=== PATIENT | female | born 1995 | race Two or more races ===

== ENCOUNTER 2019-06-16 00:25 | Inpatient (IN) | payer MEDICAID ==
[~2019-06-16] VITALS: Ht 170.2 cm; Wt 88.5 kg
[2019-06-16 01:36] LABS: Basophils # (auto) 0 uL; Basophils % (auto) 0.3 % (0.0-2.0); Eosinophils # (auto) 0.1 uL; Eosinophils % (auto) 1.2 % (0.0-7.0); Hematocrit 47.5 % (36.0-46.0); Lymphocytes # (auto) 0.8 uL; Lymphocytes % (auto) 18.4 % (10.0-50.0); Mean Corpuscular Hemoglobin 29.8 pg (28.0-32.0); Mean Corpuscular Hgb Conc. 33.7 g/dL (32.0-36.0); Mean Corpuscular Volume 88.5 fL (80.0-100.0); Monocytes # (auto) 0.6 uL; Neutrophils # (auto) 2.8 uL; Neutrophils % (auto) 66.1 % (37.0-80.0); Nucleated Red Blood Cells % 0.1 %; Platelet Count (auto) 157 10^3/uL (140-450); Red Blood Cells 5.37 10^6/uL (4.0-5.20); Red Cell Distribution Width 13.5 % (11.8-14.3); White Blood Cell 4.2 10^3/uL (4.4-10.8)
[2019-06-16 01:44] LABS: Alanine Aminotransferase 42 U/L (13-56); Albumin 3.4 g/dL (3.4-5.0); Anion Gap 10 (5-15); Aspartate Aminotransferase 33 U/L (15-37); Blood Urea Nitrogen 12 mg/dL (7-18); Calcium 8.4 mg/dL (8.5-10.1); Carbon Dioxide 20 mmol/L (21-32); Chloride 103 mmol/L (98-107); GFR African American 158 mL/min; GFR Non-African American 131 mL/min; Glucose 325 mg/dL (74-106); Potassium 3.5 mmol/L (3.5-5.1); Sodium 133 mmol/L (136-145)
[2019-06-16 01:49] LABS: Urine Bacteria FEW /hpf (None Seen); Urine Blood TRACE /uL (Negative); Urine Budding Yeast OCCASIONAL /hpf (None Seen); Urine WBC 2 /hpf (0 - 5)
[2019-06-16 01:52] LABS: Alkaline Phosphatase 82 U/L (45-117); Bilirubin, Total 0.3 mg/dL (0.2-1.0); Total Protein 7.8 g/dL (6.4-8.2)
[2019-06-16 01:58] LABS: Alcohol, Urine < 3.0 mg/dL (0-5); Amphetamine Screen, Urine NEGATIVE (NEGATIVE); Barbiturate Scree,Urine NEGATIVE (NEGATIVE); Benzodiazephine Screen, Urine NEGATIVE (NEGATIVE); Cannabinoid Screen, Urine POSITIVE (NEGATIVE); Cocaine Screen, Urine NEGATIVE (NEGATIVE); Opiate Scree,Urine NEGATIVE (NEGATIVE); Phencyclidine Screen, Urine NEGATIVE (NEGATIVE)
[2019-06-16] MEDS ORDERED: SODIUM CHLORIDE 0.9% 250 ML IV ONE (02:00)
[2019-06-16] MEDS ORDERED: methylPREDNISolone SOD SUCC 125 MG/2 ML VL IV ONE (02:00)
[2019-06-16] MEDS ORDERED: ALBUTEROL SULF 2.5 MG/0.5ML(0.5%) NEB SOLN NEB ONE (02:00)
[2019-06-16] MEDS ORDERED: IPRATROPIUM BROM 0.5 MG/2.5ML INH SOL NEB ONE (02:00)
[2019-06-16] MEDS ORDERED: LORazepam 2MG/ML-1ML VIAL IV ONE (05:30)
[2019-06-16] MEDS ORDERED: IOHEXOL 350 MG/ML 100ML IJ ONE (06:22)
[2019-06-16] MEDS ORDERED: ONDANSETRON HCL 4 MG/2 ML VIAL IV PRN (07:00)
[2019-06-16] MEDS ORDERED: NITROGLYCERIN 0.4 MG SL TAB SL PRN (07:00)
[2019-06-16] MEDS ORDERED: TEMAZEPAM 15 MG CAP PO PRN (07:00)
[2019-06-16] MEDS ORDERED: DEXTROSE (50%) 50ML SYRG IV PRN (07:00)
[2019-06-16] MEDS ORDERED: ACETAMINOPHEN 325 MG TAB PO PRN (07:00)
[2019-06-16] MEDS ORDERED: MORPHINE SULF INJ 2 MG/ML SYRINGE 1ML IV PRN (07:00)
[2019-06-16] MEDS ORDERED: SODIUM CHLORIDE 0.9% 500 ML IV ONE ×2 (07:00→14:30)
[2019-06-16] MEDS: ALBUTEROL SULF 2.5 MG/0.5ML(0.5%) NEB SOLN NEB PRN ×2 (07:46→19:18)
[2019-06-16] MEDS: SODIUM CHLORIDE 0.9% 1,000 ML IV SCH (09:07)
[2019-06-16] MEDS: cefTRIAXone 1GM/50ML D5W 50 ML IV SCH (09:16)
[2019-06-16] MEDS: methylPREDNISolone SOD SUCC 125 MG/2 ML VL IV SCH ×2 (09:28→22:41)
[2019-06-16] MEDS: FAMOTIDINE 20 MG TAB PO SCH ×2 (09:30→22:40)
[2019-06-16 09:43] VITALS: BP 132/77
[2019-06-16] MEDS ORDERED: METF-370 PO (09:45)
[2019-06-16] MEDS ORDERED: ASPirin 81 mg TAB PO SCH (10:00)
[2019-06-16] MEDS: ACCU-CHEK COMFORT CURVE STRIP VI SCH ×2 (12:14→17:19)
[2019-06-16] MEDS: InsuLIN REG 1unit/0.01ml Soln (100units/ml) SC SCH ×2 (12:25→17:19)
--- NOTE | 2019-06-16 14:55 | NUR ---
Telemetry admit from ER KUMAR OLIVIER admitted to Telemetry unit after SBAR received. Patient oriented to Анна Munson RN, unit, room, bed, and unit policies regarding patient care and visiting hours. Patient now on continuous telemetry monitoring, tele box #56 and telemetry reading on arrival to unit is 107 ST. Patient placed on bedside oxygen at 3 LPM via lung tube nasal cannula, weighed by bed scale and encouraged to call if she needs something. All questions and concerns addressed, patient verbalized understanding. Note: Patient awake, oriented x4, no acute distress noted. Ambulatory to the bathroom. Family at bedside.
--- NOTE | 2019-06-16 15:10 | NUR ---
Accu check = 337 mg/dl.
--- NOTE | 2019-06-16 15:10 | NUR ---
Accu check = 377 mg/dl. Patient stated she had Insulin at the ER. Family at bedside. Addendum: 06/16/19 at 1536 by Анна Fernandes RN ACCU CHECK = 337 MG/DL.
--- NOTE | 2019-06-16 17:19 | NUR ---
Accu check = 284 mg/dl.
--- NOTE | 2019-06-16 19:00 | NUR ---
Patient stated she's having difficulty breathing pradeep with oxygen via nasal cannula. Will call RT. Addendum: 06/16/19 at 1906 by Анна Fernandes RN even with O2
--- NOTE | 2019-06-16 19:02 | NUR ---
Tylenol PO given for pain. Family member at bedside.
--- NOTE | 2019-06-16 19:04 | NUR ---
Spoke with the Respiratory Therapist for patient's breathing treatment PRN.
[2019-06-16] MEDS ORDERED: AZITHROMYCIN 250 MG TAB PO ONE (19:45)
[2019-06-16] MEDS ORDERED: LOSARTAN POTASSIUM 50 MG TAB PO ONE (19:45)
--- NOTE | 2019-06-16 20:04 | NUR ---
received report from day rn poc reviewed
[2019-06-16] MEDS: ENOXAPARIN SOD 100 MG/1 ML SYRINGE SC SCH (22:41)
--- NOTE | 2019-06-16 23:25 | NUR ---
AWOKE C/O SWEATING TEMP WNL,
[2019-06-17] VITALS (7 sets, daily range): BP systolic 117–134; BP diastolic 70–81
[2019-06-17] MEDS: SODIUM CHLORIDE 0.9% 1,000 ML IV SCH ×3 (01:02→19:15)
[2019-06-17] MEDS: INSULIN LANTUS (GLARGINE) 1 /0.01ml (100units/ml) SC SCH ×2 (01:03→23:59)
[2019-06-17] MEDS: InsuLIN REG 1unit/0.01ml Soln (100units/ml) SC SCH ×5 (01:04→23:58)
[2019-06-17] MEDS: ACCU-CHEK COMFORT CURVE STRIP VI SCH ×5 (01:04→23:57)
--- NOTE | 2019-06-17 01:15 | NUR ---
RESTING WITH EYES CLOSED CALL LIGHT WITHIN REACH
--- NOTE | 2019-06-17 04:11 | NUR ---
AWOKE C/O SWEATING BS 259
[2019-06-17 05:48] LABS: Basophils # (auto) 0 uL; Basophils % (auto) 0.1 % (0.0-2.0); Eosinophils # (auto) 0 uL; Hematocrit 46.3 % (36.0-46.0); Hemoglobin 15.4 g/dL (12.2-16.2); Lymphocytes # (auto) 0.6 uL; Lymphocytes % (auto) 12.7 % (10.0-50.0); Mean Corpuscular Hemoglobin 29.9 pg (28.0-32.0); Mean Corpuscular Hgb Conc. 33.4 g/dL (32.0-36.0); Mean Corpuscular Volume 89.6 fL (80.0-100.0); Monocytes # (auto) 0.2 uL; Neutrophils # (auto) 4.1 uL; Neutrophils % (auto) 83.2 % (37.0-80.0); Platelet Count (auto) 171 10^3/uL (140-450); Red Blood Cells 5.17 10^6/uL (4.0-5.20); Red Cell Distribution Width 13.8 % (11.8-14.3)
[2019-06-17 06:00] LABS: Calcium 7.9 mg/dL (8.5-10.1); Potassium 4.5 mmol/L (3.5-5.1)
[2019-06-17 06:02] LABS: BUN/Creatinine Ratio 42.9
--- NOTE | 2019-06-17 06:33 | NUR ---
PT WENT TO CT
--- NOTE | 2019-06-17 07:00 | NUR ---
REPORT GIVEN TO AM NURSE POC REVIEWED
--- NOTE | 2019-06-17 07:30 | NUR ---
Opening Shift Note Received report on the patient. Awake lying in bed. Patient shows no signs of distress at this time. Discussed the plan of care with the patient. Bed in lowest position, side rails up x2, and the call light is within reach. Will continue to monitor.
[2019-06-17] MEDS: ENOXAPARIN SOD 100 MG/1 ML SYRINGE SC SCH (07:45)
--- NOTE | 2019-06-17 08:44 | NUR ---
Respiratory note: ASSESSED PT FOR PRN TX. NOT INDICATED AT THIS TIME. HR 104, SPO2 98% 2LNC BS DIMINISHED T/O, RR 18. NO RESPIRATORY DISTRESS NOTED AT THIS TIME. PT KNOWS TO HAVE RT PAGED IF TX NEEDED.
[2019-06-17] MEDS: methylPREDNISolone SOD SUCC 125 MG/2 ML VL IV SCH (09:58)
[2019-06-17] MEDS: cefTRIAXone 1GM/50ML D5W 50 ML IV SCH (09:58)
[2019-06-17] MEDS: LOSARTAN POTASSIUM 50 MG TAB PO SCH (09:59)
[2019-06-17] MEDS: FAMOTIDINE 20 MG TAB PO SCH ×2 (09:59→23:57)
[2019-06-17] MEDS ORDERED: AZITHROMYCIN 250 MG TAB PO SCH (10:00)
--- NOTE | 2019-06-17 13:12 | NUR ---
V/Q scan Called Nuc Med for status on the VQ Scan. Left a message.
[2019-06-17] MEDS ORDERED: LORATADINE 10 MG TAB PO ONE (16:45)
[2019-06-17] MEDS: ALBUTEROL SULF 2.5 MG/0.5ML(0.5%) NEB SOLN NEB PRN (18:39)
--- NOTE | 2019-06-17 19:25 | NUR ---
Opening Shift Note Received report from shasha Titus RN. Awake lying in bed. Patient shows no signs of distress at this time. Discussed the plan of care with the patient. Bed in lowest position, side rails up x2, and the call light is within reach. Will continue to monitor.
[2019-06-17] MEDS: ENOXAPARIN SOD 40 MG/0.4 ML SYRINGE SC SCH (23:57)
[2019-06-18 04:41] VITALS: BP 108/57
[2019-06-18] MEDS: ACCU-CHEK COMFORT CURVE STRIP VI SCH ×2 (06:00→12:00)
[2019-06-18 06:10] LABS: Basophils # (auto) 0 uL; Basophils % (auto) 0.1 % (0.0-2.0); Eosinophils # (auto) 0 uL; Eosinophils % (auto) 0.1 % (0.0-7.0); Hematocrit 43.4 % (36.0-46.0); Lymphocytes # (auto) 1.3 uL; Lymphocytes % (auto) 26.2 % (10.0-50.0); Mean Corpuscular Hemoglobin 30.4 pg (28.0-32.0); Mean Corpuscular Hgb Conc. 34.5 g/dL (32.0-36.0); Mean Corpuscular Volume 88.4 fL (80.0-100.0); Monocytes # (auto) 0.6 uL; Monocytes % (auto) 11.7 % (0.0-12.0); Neutrophils % (auto) 61.9 % (37.0-80.0); Nucleated Red Blood Cells % 0.2 %; Platelet Count (auto) 164 10^3/uL (140-450); Red Blood Cells 4.91 10^6/uL (4.0-5.20); Red Cell Distribution Width 13.6 % (11.8-14.3); White Blood Cell 4.8 10^3/uL (4.4-10.8)
[2019-06-18] MEDS: SODIUM CHLORIDE 0.9% 1,000 ML IV SCH ×3 (06:11→09:54)
[2019-06-18 06:14] LABS: Albumin 2.9 g/dL (3.4-5.0); Potassium 3.2 mmol/L (3.5-5.1)
[2019-06-18 06:21] LABS: BUN/Creatinine Ratio 38.6; Bilirubin, Total 0.4 mg/dL (0.2-1.0); Calcium 7.9 mg/dL (8.5-10.1); Phosphorus 2.1 mg/dL (2.5-4.90); Total Protein 6.9 g/dL (6.4-8.2)
--- NOTE | 2019-06-18 06:30 | NUR ---
Patient is alert and awake, no distress noted and patient denies pain.
[2019-06-18] MEDS: InsuLIN REG 1unit/0.01ml Soln (100units/ml) SC SCH ×2 (06:32→12:00)
--- NOTE | 2019-06-18 07:30 | NUR ---
Opening Shift Note Received report on the patient. Awake lying in bed. Patient shows no signs of distress at this time. Discussed plan of care with the patient. Bed in lowest position, side rails up x2, and the call light is within reach. Will continue to monitor.
--- NOTE | 2019-06-18 07:40 | NUR ---
Respiratory note: PRN MED NEB TX NOT INDICATED AT THIS TIME. HR 90, RR 16, SPO2 97% ON RA, BS CLEAR. NO SIGNS OR SYMPTOMS OF RESPIRATORY DISTRESS NOTED. PT INFORMED TO HIT CALL BUTTON IF FEELING SOB OR WHEEZING.
[2019-06-18] MEDS ORDERED: metFORMIN HYDROCHLORIDE 500 MG TAB PO SCH (08:00)
[2019-06-18 08:15] VITALS: BP 122/70
[2019-06-18 09:00] VITALS: BP 117/73
[2019-06-18] MEDS: cefTRIAXone 1GM/50ML D5W 50 ML IV SCH (09:10)
[2019-06-18] MEDS: ENOXAPARIN SOD 40 MG/0.4 ML SYRINGE SC SCH (09:51)
[2019-06-18] MEDS: FAMOTIDINE 20 MG TAB PO SCH (09:52)
[2019-06-18] MEDS ORDERED: LORATADINE 10 MG TAB PO SCH (10:00)
[2019-06-18] MEDS ORDERED: AZITHROMYCIN 250 MG TAB PO SCH (10:00)
[2019-06-18] MEDS ORDERED: LOSARTAN POTASSIUM 25 MG TAB PO SCH (10:00)
--- NOTE | 2019-06-18 11:44 | NUR ---
Discharge Dr at bedside. Will put orders in for discharge on 06/19 because the patient has no insurance and needs insulin. All prescriptions were called into [facility].
--- NOTE | 2019-06-18 11:53 | NUR ---
Insurance I called [facility] and left a message regarding the patient's lack of insurance and her discharge on 06/19.
[2019-06-18 12:27] VITALS: BP 126/76
[2019-06-18] MEDS: LOSARTAN POTASSIUM 50 MG TAB PO SCH (12:35)
--- NOTE | 2019-06-18 13:18 | NUR ---
AMA Patient left AMA because she was upset with Dr Mann for asking her about her marijuana consumption.
--- NOTE | 2019-06-18 13:21 | NUR ---
Tele Box Notified and returned to the tele monitors.
[2019-06-19] MEDS ORDERED: ENOXAPARIN SOD 40 MG/0.4 ML SYRINGE SC SCH (10:00)
== END 2019-06-18 13:16 | disposition left against medical advice (07) | DRG 420 ==
LOC: ER 00:29 → TELE 00:30 → TELE-WESTW 14:30
PROVIDERS: ADMIT Nurse Practitioner; ATTEND Internal Medicine Nephrology
DX: E11.10 Type 2 diabetes mellitus with ketoacidosis without coma (principal); J96.01 Acute respiratory failure with hypoxia; D70.9 Neutropenia, unspecified; E87.4 Mixed disorder of acid-base balance; E86.0 Dehydration; E11.65 Type 2 diabetes mellitus with hyperglycemia; E66.9 Obesity, unspecified; R00.0 Tachycardia, unspecified; I10 Essential (primary) hypertension; F12.10 Cannabis abuse, uncomplicated; I11.9 Hypertensive heart disease without heart failure; Z79.84 Long term (current) use of oral hypoglycemic drugs; Z82.49 Family history of ischemic heart disease and other diseases of the circulatory system; Z68.30 Body mass index [BMI] 30.0-30.9, adult; Z82.5 Family history of asthma and other chronic lower respiratory diseases; Z83.3 Family history of diabetes mellitus; F41.9 Anxiety disorder, unspecified; Y92.89 Other specified places as the place of occurrence of the external cause; T39.015A Adverse effect of aspirin, initial encounter; Z53.29 Procedure and treatment not carried out because of patient's decision for other reasons; Z71.51 Drug abuse counseling and surveillance of drug abuser
CPT/HCPCS: 36415; 36600; 71045; 71250; 80048; 80053; 80061; 80307; 81001; 81025; 82805; 82962; 83036; 83605; 83735; 83835; 83880; 84100; 84443; 84484; 85025; 85379; 87040; 87086; 87804; 93005; 93306; 94640; G0378; J0696; J1815

== ENCOUNTER 2022-05-21 14:49 | Emergency (ER) | payer SELFPAY ==
[~2022-05-21] VITALS: Ht 170.2 cm; Wt 84.5 kg
[~2022-05-21 14:49] MED LIST: METF-370 PO
[2022-05-21 15:18] LABS: Basophils # (auto) 0.1 10 ^3/uL (0-0.2); Basophils % (auto) 0.7 % (0.0-2.0); Eosinophils # (auto) 0.2 10 ^3/uL (0-0.8); Eosinophils % (auto) 3.6 % (0.0-7.0); Hematocrit 48.1 % (36.0-46.0); Hemoglobin 15.8 g/dL (12.2-16.2); Lymphocytes # (auto) 2.1 10 ^3/uL (0.4-5.4); Lymphocytes % (auto) 30.8 % (10.0-50.0); Mean Corpuscular Hemoglobin 29.6 pg (28.0-32.0); Mean Corpuscular Hgb Conc. 32.9 g/dL (32.0-36.0); Monocytes # (auto) 0.4 10 ^3/uL (0-1.3); Monocytes % (auto) 6.2 % (0.0-12.0); Neutrophils % (auto) 58.7 % (37.0-80.0); Nucleated Red Blood Cells % 0.1 %; Red Blood Cells 5.34 10^6/uL (4.0-5.20); Red Cell Distribution Width 13.8 % (11.8-14.3); White Blood Cell 6.9 10^3/uL (4.4-10.8)
[2022-05-21 15:35] LABS: BUN/Creatinine Ratio 27.1; Calcium 9.2 mg/dL (8.5-10.1); Potassium 4.4 mmol/L (3.5-5.1)
[2022-05-21 15:38] LABS: Bilirubin, Total 0.2 mg/dL (0.2-1.0)
[2022-05-21 15:40] LABS: Urine Bacteria FEW /hpf (None Seen); Urine Blood 1+ /uL (Negative); Urine Specific Gravity 1.039 (1.001-1.035); Urine WBC 2 /hpf (0 - 5)
[2022-05-21] MEDS: LABETALOL HCL 5 MG/ML 4ML SYRINGE IV ONE ×2 (16:27→21:05)
[2022-05-21] MEDS: cefTRIAXone 1GM/50ML D5W 50 ML IV ONE (17:34)
[2022-05-21] MEDS ORDERED: NITR-87 PO (18:52)
[2022-05-21] MEDS ORDERED: AML5T PO (21:04)
[2022-05-21 21:51] VITALS: BP 129/83
== END 2022-05-21 22:00 | disposition home or self-care (01) ==
LOC: EDUNIT# 14:49 → ER 14:49 → EDBD 14:49 → ER 22:00
DX: I16.9 Hypertensive crisis, unspecified (principal); N39.0 Urinary tract infection, site not specified; R10.2 Pelvic and perineal pain; R07.89 Other chest pain; E11.9 Type 2 diabetes mellitus without complications; I10 Essential (primary) hypertension; Z91.018 Allergy to other foods
CPT/HCPCS: 36415; 71045; 80053; 81001; 83880; 84484; 84702; 85025; 85379; 93005; 96365; 96375; 96376; 99285; J0696; J3490

== ENCOUNTER 2024-04-05 11:57 | Emergency (ER) | payer MEDICAID ==
[~2024-04-05] VITALS: Ht 170.2 cm; Wt 77.0 kg
[~2024-04-05 11:57] MED LIST changes: +AML5T PO; +NITR-87 PO
--- NOTE | 2024-04-05 14:05 | ED.PDOC ---
History of Present Illness HPI Comments 28 y/o F, with a Hx of CVA, DM, HTN, and EtOH and marijuana use, presents with c/o abnormal vaginal bleeding and lower abdominal and back pain for the past 3x days, today. Patient endorses on being 6-8x weeks and having unprovoked onset of intermittent spotting, with abdominal pain that, occasional ly, radiates towards her back. Patient states this being her third , with the first being a stillborn and the second being a miscarriage ([id number]). 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 Patient reports no additional relevant or pertinent Hx aside from FMHx of breast and lung CA, in addition to refuting any recent injuries, sick contact, travel, spoiled food intake, or recent substance use/exposure. Patient denies having any nausea, vomiting, diarrhea, dysuria, fever, chills, or other associated symptoms or modifiers at this time. Chief Complaint: Time Seen by MD: 13:10 Primary Care Provider: NONE Reviewed Notes: Nurses Notes, Medications, Allergies Allergies: Coded Allergies: Iodine (Verified Allergy, Unknown, 06/16/19) Uncoded Allergies: PENICILLIN (Allergy, Unknown, 04/05/24) Home Meds Active Scripts Nitrofurantoin Monohydrate Mac (Macrobid) 100 Mg Cap, 100 MG PO BID for 7 Days, #14 CAP Prov:MARIA C CAVAZOS MD 04/05/24 Amlodipine Besylate (NORVASC TABLET) 5 Mg Tb, 1 TAB PO DAILY PRN for 10 Days, #10 TAB 5 Refills Prov:CHERYL CUBA DO 05/21/22 Reported Medications Metformin Hydrochloride (Metformin Hcl) 500 Mg Tab, 500 MG PO IBID for 30 Days, MG 06/16/19 Information Source: Patient Mode of Arrival: Ambulatory Severity: Moderate Timing: Days Duration: Since onset Prehospital treatment: None Past Medical History PAST MEDICAL HISTORY: CVA, DM, HTN Surgical History: Denies all surgeries INFORMATION SYSTEMS SECURITY ANALYST History: Denies all INFORMATION SYSTEMS SECURITY ANALYST Hx Family History Family History: No family hx of DM, No family hx of Heart antwon, No family hx of HTN, No family hx ofKidney antwon, No family hx of Liver antwon, No family hx of Lung antwon, No family hx of Stroke, Family hx of Cancer (breast and lung CA ) Social History Smoker: Non-Smoker Alcohol: Occasionally Drugs: Marijuana Lives In: Home Constitutional: denies: chills, diaphoresis, fatigue, fever, malaise, sweats, weakness, others EENTM: denies: blurred vision, double vision, ear bleeding, ear discharge, ear drainage, ear pain, ear ringing, eye pain, eye redness, hearing loss, mouth pain, mouth swelling, nasal discharge, nose bleeding, nose congestion, nose pain, photophobia, tearing, throat pain, throat swelling, voice changes, others Respiratory: denies: cough, hemoptysis, orthopnea, SOB at rest, shortness of breath, SOB with excertion, stridor, wheezing, others Cardiovascular: denies: chest pain, dizzy spells, diaphoresis, Dyspnea on exertion, edema, irregular heart beat, left arm pain, lightheadedness, palpitations, PND, syncope, others Gastrointestinal: reports: abdominal pain; denies: abdomen distended, blood streaked bowels, constipated, diarrhea, dysphagia, difficulty swallowing, hemate mesis, melena, nausea, poor appetite, poor fluid intake, rectal bleeding, rectal pain, vomiting, others Genitourinary: reports: abnormal vagina bleeding; denies: burning, dyspareunia, dysuria, flank pain, frequency, hematuria, incontinence, pain, , vagina discharge, urgency, others Neurological: denies: dizziness, fainting, headache, left sided numbness, left sided weakness, numbness, paresthesia, pre-existing deficit, right sided numb ness, right sided weakness, seizure, speech problems, tingling, tremors, weakness, others Musculoskeletal: reports: back pain; denies: gout, joint pain, joint swelling, muscle pain, muscle stiffness, neck pain, others Integumetry: denies: bruises, change in color, change in hair/nails, dryness, laceration, lesions, lumps, rash, wounds, others Allergic/Immunocompromised: denies: Difficulty Healing, Frequent Infections, Hives, Itching, others Hematologic/Lymphatic: denies: anemia, blood clots, easy bleeding, easy bruising, swollen glands, others Endocrine: denies: excessive hunger, excessive sweating, excessive thirst, excessive urination, flushing, intolerance to cold, intolerance to heat, unexplained weight gain, unexplained weight loss, others Psychiatric: denies: anxiety, bipolar disorder, depression, hopeless, panic disorder, schizophrenia, sleepless, suicidal, others All Other Systems: Reviewed and Negative Physical Exam General Appearance: No Apparent Distress HEENT: Normal ENT Inspection, Pharynx Normal, TMs Normal Neck: Full Range of Motion, Non-Tender, Normal, Normal Inspection Respiratory: Chest Non-Tender, Lungs Clear, No Accessory Muscle Use, No Respiratory Distress, Normal Breath Sounds Cardiovascular: No Edema, No JVD, No Murmur, No Gallop, Normal Peripheral Pulses, Regular Rate/Rhythm Breast Exam: Deferred Gastrointestinal: No Organomegaly, Non Tender, No Pulsatile Mass, Normal Bowel Sounds, Soft Genitalia: Deferred Pelvic: Deferred Rectal: Deferred Extremities: No calf tenderness, Normal capillary refill, Normal inspection, Normal range of motion, Non-tender, No pedal edema Musculoskeletal : Apperance: Normal Neurologic: Alert, bounty trapper II-XII nml as Tested, No Motor Deficits, Normal Affect, Normal Mood, No Sensory Deficits Cerebellar Function: Normal Reflexes: Normal Skin: Dry, Normal Color, Warm Lymphatic: No Adenopathy Was a procedure done? Was a procedure done?: No Differential Dx Considerations may include: at-risk , at-risk miscarriage, UTI, menorrhea, menorrhagia, dysmenorrhea X-Ray, Labs, Meds, VS Vital Signs Date Time Temp Pulse Resp B/P (MAP) Pulse Ox O2 Delivery O2 Flow Rate FiO2 04/05/24 12:45 98.0 100 18 150/94 (112) 97 Lab Test 04/05/24 13:43 04/05/24 12:16 Range/Units Beta HCG, Quantitative 14728.2 H 1.5-4.2 mIU/mL Urine Color Yellow Yellow Urine Clarity Clear Clear Urine pH 5.5 5.0-9.0 Urine Specific [place] 1.038 H 1.001-1.035 Urine Protein 3+ H Negative Urine Ketones Negative Negative Urine Blood 2+ H Negative /uL Urine Nitrite 1+ H Negative Urine Bilirubin Negative Negative Urine Urobilinogen Normal Negative mg/dL Urine Leukocyte Esterase Negative Negative /uL Urine RBC 2 0 - 4 /hpf Urine WBC 4 0 - 5 /hpf Urine Squamous Epithelial Cells Few <5 /hpf Urine Amorphous Crystals Few None Seen /hpf Urine Bacteria Few H None Seen /hpf Urine Mucus Few None Seen Urine Glucose 4+ H Normal mg/dL PROCEDURE(s): OB4US - OB ULTRASOUND COMP LESS 14WKS IMPRESSION: 1. Single living intrauterine with estimated gestational age of 8 weeks 0 days based on 1st trimester ultrasound crown-rump length. Large ovarian mass at the fundus, likely fibroid. 2. Unremarkable sonographic appearance of both ovaries. The urine test is positive for UTI The patient was being discharged on Macrobid The patient will follow up with the primary care doctor We did explain to the patient that she also has a fibroid The patient was being discharged Time of 1ST Reevaluation: 13:40 Reevaluation 1ST: Unchanged Patient Education/Counseling: Diagnosis, Treatment, Prognosis, Need For Follow Up Family Education/Counseling: No Family Present Departure 1 Departure Time of Disposition: 18:12 Impression: Primary Impression: Abdominal pain during Qualified Codes: O26.899 - Other specified related conditions, unspecified trimester; R10.9 - Unspecified abdominal pain Additional Impressions: UTI (urinary tract infection) Qualified Codes: N30.00 - Acute cystitis without hematuria Threatened Disposition: HOME / SELF CARE / HOMELESS Condition: Fair e-Prescriptions Nitrofurantoin Monohydrate Mac (Macrobid) 100 Mg Cap 100 MG PO BID for 7 Days, #14 CAP Prov: MARIA C CAVAZOS MD 04/05/24 Discharged With: Self Critical Care Note Critical Care Time?: No Stability Stability form required: No Heart Score Heart Score: Heart Score Response (Comments) Value History N/A 0 EKG N/A 0 Age N/A 0 Risk Factors N/A 0 Troponin N/A 0 Total 0 I personally scribed for MARIA C CAVAZOS MD ([email or web address]) on 04/05/24 at 14:05. Electronically submitted by Chato Persaud ([email or web address]). I personally scribed for MARIA C CAVAZOS MD ([email or web address]) on 04/05/24 at 16:11. Electronically submitted by Chato Persaud ([email or web address]). MARIA C CAVAZOS MD Apr 05, 2024 14:05
--- NOTE | 2024-04-05 15:21 | DVH ---
CLINICAL HISTORY: pain COMPARISON: None TECHNIQUE: Transabdominal grayscale sonographic imaging of the uterus and ovaries was performed, assi sted by color Doppler technique. Duplex Doppler ultrasound of both ovaries was also performed. Sonogr aphic evaluation of early intrauterine was performed, including m-mode Doppler FINDINGS: The uterus measures 10.9 x 7.2 x 9.9 cm. There is heterogeneous echogenicity. Intrauterine gestational sac with yolk sac and pole identified. [place]-rump length measures 1.6 cm, correspon ding to an estimated gestational age of 8 weeks 0 days. heart rate measures 159 beats per minut e. Hypoechoic mass in the uterine fundus measuring up to 10.9 cm, likely fibroid. Right ovary measures 4.5 x 2.3 x 2.7 cm. Arterial and venous blood flow demonstrated. Left ovary measures 3.1 x 1.6 x 2.0 cm. Arterial and venous blood flow demonstrated. IMPRESSION: 1. Single living intrauterine with estimated gestational age of 8 weeks 0 days based on 1st trimester ultrasound crown-rump length. Large ovarian mass at the fundus, likely fibroid. 2. Unremarkable sonographic appearance of both ovaries.
[2024-04-05 17:25] LABS: Urine Amorphous Crystal FEW /hpf (None Seen); Urine Bacteria FEW /hpf (None Seen); Urine Blood 2+ /uL (Negative); Urine Clarity Clear (Clear); Urine Color Yellow (Yellow); Urine Mucus FEW (None Seen); Urine Protein, UAD 3+ (Negative); Urine Specific Gravity 1.038 (1.001-1.035); Urine Urobilinogen Normal (Negative); Urine WBC 4 /hpf (0 - 5); Urine pH 5.5 (5.0-9.0)
[2024-04-05] MEDS ORDERED: NITR-87 PO (18:11)
[2024-04-05 18:52] VITALS: BP 151/88; PULSE 95; RESP 17; TEMP 98.7; O2SAT 98
== END 2024-04-05 18:56 | disposition home or self-care (01) ==
LOC: ER 11:57
DX: O20.0 Threatened abortion (principal); O23.41 Unspecified infection of urinary tract in pregnancy, first trimester; O10.911 Unspecified pre-existing hypertension complicating pregnancy, first trimester; O23.11 Infections of bladder in pregnancy, first trimester; N39.0 Urinary tract infection, site not specified; Z3A.01 Less than 8 weeks gestation of pregnancy; Z86.73 Personal history of transient ischemic attack (TIA), and cerebral infarction without residual deficits; Z88.0 Allergy status to penicillin; Z88.8 Allergy status to other drugs, medicaments and biological substances; Z91.041 Radiographic dye allergy status; Z3A.08 8 weeks gestation of pregnancy
CPT/HCPCS: 36415; 76801; 81001; 84702

== ENCOUNTER 2024-06-06 09:56 | Emergency (ER) | payer MEDICAID ==
[~2024-06-06] VITALS: Ht 170.2 cm; Wt 93.9 kg
--- NOTE | 2024-06-06 10:46 | ED.PDOC ---
FACE HARDENER HPI Comments 28 y/o F, with PMHX of DM and HTN presents to the ED for CC of abdominal pain. Patient states, that she has been experiencing suprapubic abdominal pain that radiates to her lower back since last night (06/05/24). Patient comments on, abdominal pain to feel like cramping. Patient denies social history. Patient denies dysuria, hematuria, vaginal bleeding, or N/V/D. No new symptoms or modifiers at this time. Chief Complaint: Pelvic Pain Time Seen by MD: 10:10 Reviewed Notes: Nurses Notes, Medications, Allergies Allergies: Coded Allergies: Iodine (Verified Allergy, Unknown, 06/16/19) Uncoded Allergies: PENICILLIN (Allergy, Unknown, 04/05/24) Home Meds Active Scripts Nitrofurantoin Monohydrate Mac (Macrobid) 100 Mg Cap, 100 MG PO BID for 7 Days, #14 CAP Prov:MARIA C CAVAZOS MD 04/05/24 Amlodipine Besylate (NORVASC TABLET) 5 Mg Tb, 1 TAB PO DAILY PRN for 10 Days, #10 TAB 5 Refills Prov:CHERYL CUBA DO 05/21/22 Reported Medications Metformin Hydrochloride (Metformin Hcl) 500 Mg Tab, 500 MG PO IBID for 30 Days, MG 06/16/19 Information Source: Patient Mode of Arrival: Ambulatory Timing: Hours Prehospital treatment: None Severity: None Vaginal Discharge: None Vaginal Lesions: None Vaginal Mass: None Onset Of Mass/Bleeding: Spontaneous Sexual Activity: Last Consensual [place]: Unknown Blood Type: Unknown Symptoms of Possible : None Associated Signs and Symptoms: Abdominal Pain Past Medical History PAST MEDICAL HISTORY: CVA, DM, HTN Surgical History: Denies all surgeries GEOMETRICIAN History: Denies all GEOMETRICIAN Hx Family History Family History: No family hx of DM, No family hx of Heart antwon, No family hx of HTN, No family hx ofKidney antwon, No family hx of Liver antwon, No family hx of Lung antwon, No family hx of Stroke, Family hx of Cancer Social History Smoker: Non-Smoker Alcohol: Occasionally Drugs: Marijuana Lives In: Home Constitutional: denies: chills, diaphoresis, fatigue, fever, malaise, sweats, weakness, others EENTM: denies: blurred vision, double vision, ear bleeding, ear discharge, ear drainage, ear pain, ear ringing, eye pain, eye redness, hearing loss, mouth pain, mouth swelling, nasal discharge, nose bleeding, nose congestion, nose pain, photophobia, tearing, throat pain, throat swelling, voice changes, others Respiratory: denies: cough, hemoptysis, orthopnea, SOB at rest, shortness of breath, SOB with excertion, stridor, wheezing, others Cardiovascular: denies: chest pain, dizzy spells, diaphoresis, Dyspnea on exertion, edema, irregular heart beat, left arm pain, lightheadedness, palpitations, PND, syncope, others Gastrointestinal: reports: abdominal pain; denies: abdomen distended, blood streaked bowels, constipated, diarrhea, dysphagia, difficulty swallowing, hematemesis, melena, nausea, poor appetite, poor fluid intake, rectal bleeding, rectal pain, vomiting, others Genitourinary: reports: pain; denies: abnormal vagina bleeding, burning, dyspareunia, dysuria, flank pain, frequency, hematuria, incontinence, , vagina discharge, urgency, others Neurological: denies: dizziness, fainting, headache, left sided numbness, left sided weakness, numbness, paresthesia, pre-existing deficit, right sided numbness, right sided weakness, seizure, speech problems, tingling, tremors, weakness, others Musculoskeletal: reports: back pain; denies: gout, joint pain, joint swelling, muscle pain, muscle stiffness, neck pain, others Integumetry: denies: bruises, change in color, change in hair/nails, dryness, laceration, lesions, lumps, rash, wounds, others Allergic/Immunocompromised: denies: Difficulty Healing, Frequent Infections, Hives, Itching, others Hematologic/Lymphatic: denies: anemia, blood clots, easy bleeding, easy bruising, swollen glands, others Endocrine: denies: excessive hunger, excessive sweating, excessive thirst, excessive urination, flushing, intolerance to cold, intolerance to heat, unexplained weight gain, unexplained weight loss, others Psychiatric: denies: anxiety, bipolar disorder, depression, hopeless, panic disorder, schizophrenia, sleepless, suicidal, others All Other Systems: Reviewed and Negative Physical Exam General Appearance: Moderate Distress HEENT: Normal ENT Inspection, Pharynx Normal, TMs Normal Neck: Full Range of Motion, Non-Tender, Normal, Normal Inspection Respiratory: Chest Non-Tender, Lungs Clear, No Accessory Muscle Use, No Respiratory Distress, Normal Breath Sounds Cardiovascular: No Edema, No JVD, No Murmur, No Gallop, Normal Peripheral Pulses, Regular Rate/Rhythm Breast Exam: Deferred Gastrointestinal: No Organomegaly, Non Tender, No Pulsatile Mass, Normal Bowel Sounds, Soft Genitalia: Deferred Pelvic: Deferred Rectal: Deferred Extremities: No calf tenderness, Normal capillary refill, Normal inspection, Normal range of motion, Non-tender, No pedal edema Musculoskeletal : Apperance: Normal Neurologic: Alert, acquisition manager II-XII nml as Tested, No Motor Deficits, Normal Affect, Normal Mood, No Sensory Deficits Cerebellar Function: Normal Reflexes: Normal Skin: Dry, Normal Color, Warm Peripheral Pulses: 3+ Radial (R), 3+ Radial (L) Lymphatic: No Adenopathy Was a procedure done? Was a procedure done?: No Differential Diagnosis (GEOMETRICIAN) Vaginal Bleeding: - Complete, - Incomplete, - Inevitable, - Missed, - Threatened X-Ray, Labs, Meds, VS Vital Signs Date Time Temp Pulse Resp B/P (MAP) Pulse Ox O2 Delivery O2 Flow Rate FiO2 06/06/24 12:25 98.0 100 16 148/92 (110) 100 98.0 06/06/24 12:18 100 16 100 Room Air* 0 21 06/06/24 10:17 99.3 112 16 113/70 (84) 94 Lab Test 06/06/24 11:18 06/06/24 10:15 Range/Units Beta HCG, Quantitative Pending Urine Color Pending Urine Clarity Pending Urine pH Pending Urine Specific [place] Pending Urine Protein Pending Urine Ketones Pending Urine Blood Pending Urine Nitrite Pending Urine Bilirubin Pending Urine Urobilinogen Pending Urine Leukocyte Esterase Pending Urine RBC Pending Urine Microscopic WBC Pending Urine Squamous Epithelial Cells Pending Urine Bacteria Pending Urine Glucose Pending [address] [address] Ph: [phone] DIAGNOSTIC IMAGING Diagnostic Imaging Report : [id number] Signed PATIENT: KUMAR OLIVIER EACCT: [id number] UNIT: [id number] : 1995 LOC: ER ROOM / BED: / AGE / SEX: 28 / F ADM STATUS: REG ER SERVICE [id number] ORDERING PHYSICIAN: INEZ SHANNON MD PROCEDURE(s): OB4US - OB ULTRASOUND COMP LESS 14WKS REASON: cramping ORDER NUMBER(s): [id number], ACCESSION NUMBER(s): [id number] OB ULTRASOUND <14 WEEKS: HISTORY: cramping TECHNIQUE: Multiple real-time grayscale sonographic images of the pelvis with duplex Doppler color flow, spectral and M-mode analysis. TRANSDUCERS: Transabdominal COMPARISON: US OB ULTRASOUND COMP LESS 14WKS on DOS: 04/05/24 FINDINGS: The uterus is suboptimally visualized. Large heterogeneous structure at the region of the uterine fundus measuring 9.9 x 8.6 x 10.0 cm likely represents a fibroid. The cervix is not visualized Ovaries are not visualized. IUP single fetus at 12 weeks and 4 days average ultrasound age based on mean crown-rump length of 6.1 cm and gestational sac size of 7.3 cm heart rate detected at 0 beats per minute. Yolk sac is not present. Amniotic fluid is subjectively within normal limits Ya-gestational space: Unremarkable IMPRESSION: IUP single fetus 12 weeks and 4 days AUA. No heart rate is visualized at this time. Findings may represent spontaneous . Close clinical and sonographic follow-up advised. Recommend correlation with beta HCG. ATED BY: CHEMA CABRAL MD DICTATED DATE/TIME: 06/06/24 1132 SIGNED BY: CHEMA CABRAL MD SIGNED DATE/TIME: 06/06/24 1132 CC: Patient alert. Complaining of abdominal discomfort. Vitals stable. Answering all questions. Ultrasound reviewed does not show heart tones of a 12 week. Spontaneous . Being followed at [facility]. Explained to the patient. Continue monitoring. Was told to follow up with her OBGYN. Was told to follow up with her primary care physician. Was told to come back if there is any. Time of 1ST Reevaluation: 10:40 Reevaluation 1ST: Unchanged Patient Education/Counseling: Diagnosis, Treatment Family Education/Counseling: Diagnosis, Treatment Additional Information I reviewed the following notes from patient's past medical encounters: 04/05/24 DX: ABD PAIN WHILE The following tests were ordered, and results were reviewed by me: BETA HCG, OB US, UA I reviewed and agreed with the following test results read by other providers: OB US I discussed treatment and results with medical personnel and: PATIENT Departure 1 Departure Time of Disposition: 12:48 Impression: Primary Impression: Abdominal pain during Qualified Codes: O26.899 - Other specified related conditions, unspecified trimester; R10.9 - Unspecified abdominal pain Additional Impression: Spontaneous Disposition: 02 SHORT TERM HOSPITAL Condition: Good Discharged With: Self Critical Care Note Critical Care Time?: No Stability Stability form required: No Heart Score Heart Score: Heart Score Response (Comments) Value History N/A 0 EKG N/A 0 Age N/A 0 Risk Factors N/A 0 Troponin N/A 0 Total 0 I personally scribed for INEZ SHANNON MD ([email or web address]) on 06/06/24 at 10:46. Electronically submitted by Eliza English ([email or web address]). I personally scribed for INEZ SHANNON MD ([email or web address]) on 06/06/24 at 11:39. Electronically submitted by Eliza English ([email or web address]). I personally scribed for INEZ SHANNON MD ([email or web address]) on 06/06/24 at 11:58. Electronically submitted by Eliza English ([email or web address]). INEZ SHANNON MD Jun 06, 2024 10:46
--- NOTE | 2024-06-06 11:34 | DVH ---
OB ULTRASOUND <14 WEEKS: HISTORY: cramping TECHNIQUE: Multiple real-time grayscale sonographic images of the pelvis with duplex Doppler color f low, spectral and M-mode analysis. TRANSDUCERS: Transabdominal COMPARISON: US OB ULTRASOUND COMP LESS 14WKS on DOS: 04/05/24 FINDINGS: The uterus is suboptimally visualized. Large heterogeneous structure at the region of the uterine fu ndus measuring 9.9 x 8.6 x 10.0 cm likely represents a fibroid. The cervix is not visualized Ovaries are not visualized. IUP single fetus at 12 weeks and 4 days average ultrasound age based on mean crown-rump length of 6. 1 cm and gestational sac size of 7.3 cm heart rate detected at 0 beats per minute. Yolk sac is not present. Amniotic fluid is subjectively within normal limits Ya-gestational space: Unremarkable IMPRESSION: IUP single fetus 12 weeks and 4 days AUA. No heart rate is visualized at this time. Findings may represent spontaneous . Close clinical and sonographic follow-up advised. Recommend gerhard elation with beta HCG.
[2024-06-06 12:18] VITALS: PULSE 100; RESP 16; O2SAT 100
[2024-06-06 12:25] VITALS: BP 148/92; PULSE 100; RESP 16; TEMP 98; O2SAT 100
[2024-06-06 12:27] LABS: Urine Bacteria None Seen /hpf (None Seen)
[2024-06-06 13:09] LABS: Urine Blood 2+ /uL (Negative); Urine Clarity Turbid (Clear); Urine Color Yellow (Yellow); Urine Hyaline Cast FEW /lpf (0 - 2); Urine Mucus FEW (None Seen); Urine Protein, UAD 3+ (Negative); Urine Specific Gravity 1.031 (1.001-1.035); Urine Squamous Epithelial Cell FEW /hpf (<5); Urine Urobilinogen Normal (Negative); Urine WBC 6 /HPF (0-5); Urine pH 6.5 (5.0-9.0)
== END 2024-06-06 15:31 | disposition left against medical advice (07) ==
LOC: ER 09:56
DX: O03.9 Complete or unspecified spontaneous abortion without complication (principal); R10.2 Pelvic and perineal pain; O10.911 Unspecified pre-existing hypertension complicating pregnancy, first trimester; O24.111 Pre-existing type 2 diabetes mellitus, in pregnancy, first trimester; F12.10 Cannabis abuse, uncomplicated; Z3A.12 12 weeks gestation of pregnancy; Z86.73 Personal history of transient ischemic attack (TIA), and cerebral infarction without residual deficits; Z88.0 Allergy status to penicillin; Z88.8 Allergy status to other drugs, medicaments and biological substances; Z91.041 Radiographic dye allergy status
CPT/HCPCS: 36415; 76801; 81001; 84702